=== PATIENT | male | born 1980 | race Caucasian/White ===

== ENCOUNTER → 2016-11-18 | Outpatient (REF) ==
[~2016-11-18] MED LIST: NO HOME MEDICATIONS
[2016-11-18 10:31] LABS: C-REACTIVE PROTEIN 1.6 mg/dL (0.0-0.9)
== END ==
LOC: ZLAB.WCH 09:02
PROVIDERS: Family Medicine
DX: Z01.89 Encounter for other specified special examinations (principal)

== ENCOUNTER → 2016-11-18 | Outpatient (REF) | LOC: ZLAB.WCH 09:00 | DX: Z01.89 Encounter for other specified special examinations (principal) ==

== ENCOUNTER 2018-05-04 13:04 | Emergency (ER) | payer OTHER ==
[~2018-05-04] VITALS: Ht 175.3 cm; Wt 100.0 kg
[2018-05-04 13:27] VITALS: TEMP 97.9
[2018-05-04] MEDS ORDERED: CELEXA10 MG PO (13:39)
[2018-05-04] MEDS ORDERED: PRINZIDE 25 MG-1 TAB PO (13:39)
[2018-05-04] MEDS ORDERED: ATIVAN 0.50.5 MG/TAB PO (13:40)
[2018-05-04] MEDS ORDERED: LIALDA 1.2 GM1.2 GM (13:40)
[2018-05-04 14:03] LABS: BASO # 0.1 (0.0-0.2); BASO % 0.6 % (0.0-2.0); EOS # 0.3 (0.0-0.7); EOS % 3.1 % (0-4.0); GRAN # 5.2 (1.4-6.5); HEMATOCRIT 44.3 % (42.0-52.0); HEMOGLOBIN 15.8 g/dl (13.5-18.0); LYMPH # 2.3 (1.2-3.4); LYMPH % 26.7 % (20.0-51.0); MEAN CELL VOLUME 92 fl (80.0-100.0); MEAN CORPUSCULAR HEMOGLOBIN 33 pg (27.0-31.0); MEAN CORPUSCULAR HGB CONC 36 g/dl (33.0-37.0); MEAN PLATELET VOLUME 10.3 fl (7.4-10.4); MONO # 0.6 (0.1-0.6); MONO % 7.1 % (1.7-9.3); PLATELET COUNT 192 K/mm3 (130-400); RED BLOOD COUNT 4.81 M/mm3 (4.20-5.60)
[2018-05-04 14:14] LABS: ALANINE AMINOTRANSFERASE 108 U/L (21-72); ALKALINE PHOSPHATASE 88 U/L (50-136); ANION GAP 6 mmol/L (7-16); AST,SGOT 60 U/L (15-37); BILIRUBIN,TOTAL 0.8 mg/dL (0.0-1.0); BLOOD UREA NITROGEN 18 mg/dL (9-20); CALCIUM 9.1 mg/dL (8.4-10.2); CARBON DIOXIDE 26 mmol/L (22-30); CHLORIDE 105 mmol/L (98-107); CREATININE, serum 0.81 mg/dL (0.66-1.25); GLUCOSE 216 mg/dL (74-106); POTASSIUM 3.8 mmol/L (3.4-5.0); SODIUM 137 mmol/L (137-145); TOTAL PROTEIN 7.1 gm/dL (6.4-8.2)
[2018-05-04 14:35] LABS: TROPONIN-I < 0.012 ng/mL (0.000-0.034)
[2018-05-04] MEDS ORDERED: NEXIUM 20MG20 MG PO (15:24)
[2018-05-04 16:00] VITALS: BP 127/90; PULSE 73
== END 2018-05-04 16:05 | disposition home or self-care (01) ==
LOC: COL.ER 13:04
PROVIDERS: Emergency Medicine
DX: R07.9 Chest pain, unspecified (principal)
CPT/HCPCS: J7030

== ENCOUNTER → 2018-08-07 | Outpatient (REF) ==
[~2018-08-07] MED LIST changes: +ATIVAN 0.50.5 MG/TAB PO; +CELEXA10 MG PO; +LIALDA 1.2 GM1.2 GM; +NEXIUM 20MG20 MG PO; +PRINZIDE 25 MG-1 TAB PO
[2018-08-07 17:48] LABS: THYROID STIMULATING HORMONE 2.56 uIU/mL (0.465-4.680)
== END ==
LOC: ZLAB.WCH 16:13
PROVIDERS: Physician Assistant
DX: Z01.89 Encounter for other specified special examinations (principal)

== ENCOUNTER 2019-12-27 09:41 | Day surgery (SDC) | payer OTHER ==
[~2019-12-27] VITALS: Ht 172.7 cm; Wt 97.3 kg
[~2019-12-27 09:41] MED LIST changes: -LIALDA 1.2 GM1.2 GM; +LIALDA 1.2 GM1.2 GM PO
[2019-12-27 10:20] VITALS: BP 136/95; PULSE 76; TEMP 98.7
[2019-12-27] MEDS ORDERED: GLUCOPHAGE XR500 M1 PO (10:25)
[2019-12-27 12:35] VITALS: BP 128/82; PULSE 76; TEMP 98.7
[2019-12-27 12:50] VITALS: BP 126/97; PULSE 62
[2019-12-27 13:05] VITALS: BP 117/83; PULSE 60
== END 2019-12-27 13:25 | disposition home or self-care (01) ==
LOC: SDCO 09:41
DX: K57.30 Diverticulosis of large intestine without perforation or abscess without bleeding (principal); K51.90 Ulcerative colitis, unspecified, without complications; Z79.84 Long term (current) use of oral hypoglycemic drugs; Z87.891 Personal history of nicotine dependence
CPT/HCPCS: J2250; J2405; J3010; J7030